=== PATIENT | male | born 1960 | race Caucasian/White ===

== ENCOUNTER 2022-02-07 12:54 | Outpatient (CLI) | payer OTHER, SELFPAY ==
--- OUTSIDE RECORDS SUMMARY | 2022-02-07 12:59 | XMS_ITS ---
:1960 Author Care Team Providers Name Role Phone Holland Dejesus Primary Care Provider Unavailable Allergies Code Code System Name Reaction Severity Status Onset NKDA ? Medications Name Status Start Date Stop Date ? ? ID NOW COVID-19 Test Kit Active ? Not sarah ilable TEST DIRECTED ketoconazole 2 % topical cream Completed ? 0 06/07/2021 Pentoxifylline CR 400 mg tablet,extended release Completed ? 06/07/2021 Take 1 tablet by mouth twice daily pentoxifylline ER 400 mg tablet,extended release Active ? Not available Take 1 tablet twice a day by oral route. tadalafil 5 mg tablet Active ? Not availa ble Take 1 tablet every day by oral route. zaleplon 10 mg capsule Completed ? TAKE 1 CAPSULE BY MOUTH AT BEDTIME N EEDED. (NO USE WITHIN 12 HOURS OF FLIGHT) Problems Name Status Onset Date Source ? 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 Procedures Date Name Performed by ? ? Vasectomy Information not avai lable Notes: 1996 ? Colonoscopy Information not avai lable Results Lab Results None recorded. Past Encounters 06/07/2021 Induration Penis Plastica Martin Larose MD: [address] [place] [address], Ph. 10/12/2020 Induration Penis Plastica Martin Larose MD: [address] [place] [address], [place]. Social History Tobacco Smoking Status Never Smoker Vaccine List Notes: NONE Plan of Care Reminders Provider Appointments None recorded. ? ? Lab None recorded. ? ? Referral None recorded. ? ? Procedures None recorded. ? ? Surgeries None recorded. ? ? Imaging None recorded. ? ? Vitals 06/07/2021 11:10AM ESTABLISHED 10 Height Weight BMI 6 ft 1 in 195 lbs 25.7 kg/m2 10/12/2020 09:20AM ESTABLISHED 10 Height Weight BMI 6 ft 1 in 195 lbs 25.7 kg/m2 01/20/2020 10:30AM NEW PATIENT 10 Height Weight BMI 6 ft 1 in 195 lbs 25.7 kg/m2
--- NOTE | 2022-02-07 13:00 | CRLHL7_ITS ---
For Patients: As a result of the Century Cures Act, medical imaging exams and procedure reports are released immediately into your electronic medical record. You may view this report before your referring provider. If you have questions, please contact your health care provider. INDICATION: For history of polycystic kidney disease TECHNIQUE: Ultrasound renal bilateral. COMPARISON: None FINDINGS: Right kidney: 10.9 cm. Normal echotexture and cortex. No masses, stones, or hydronephrosis. Left kidney: 10.1 cm. Normal echotexture and cortex. No masses, stones, or hydronephrosis. IMPRESSION: Normal renal ultrasound. Dictated by Mateo Wright MD @ 02/07/2022 1:52:08 PM (Electronically Signed)
== END 2022-02-07 12:55 | disposition home or self-care (01) ==
PROVIDERS: PCP Family Medicine; Visit Provider Family Medicine
DX: Z82.71 Family history of polycystic kidney (principal)
CPT/HCPCS: 76775

== ENCOUNTER 2023-03-22 09:22 | Outpatient (CLI) | payer OTHER, SELFPAY | END 2023-03-22 09:23 | disposition home or self-care (01) | LOC: NFLDREF 03-24 08:42 | PROVIDERS: PCP Family Medicine; Referring Provider Family Medicine; Visit Provider Family Medicine | DX: Z00.00 Encounter for general adult medical examination without abnormal findings (principal); I10 Essential (primary) hypertension; R97.20 Elevated prostate specific antigen [PSA]; Z13.6 Encounter for screening for cardiovascular disorders | CPT/HCPCS: 80053; 80061; 84153 ==

== ENCOUNTER 2023-10-27 09:37 | Outpatient (CLI) | payer OTHER, SELFPAY ==
--- OUTSIDE RECORDS SUMMARY | 2023-10-31 20:16 | XMS_ITS | Continuity of Care Document ---
Author Organization [facility] Address [address] [address] [place] [address] Phone Care Team Providers Care Rubber Liner Name Role Phone Erika Nettles CRNA Unavailable Unavailable Allergies, Adverse Reactions, Alerts Substance Reaction Status Criticality No Known Allergies Active No Inform ation Medications Medication Instructions Dosage Effective Dates (start - stop) Status Comments Prilosec 20 mg capsule,delayed release take 1 capsule (20MG) by ORAL route every day before a meal 20 MG - No Longer Active Flonase 50 mcg/actuation Nasal [place] spray 1 [place](s) by Intranasal route every day in each nostril 1 [place](s) - No Longer Active Procedures Procedure Date Colonoscopy Flex; Dx (sep Pro) 22 Colonoscopy Flex; W/remov Les- 13 Colonoscopy Flex; W/bx 1/mx Level Iv-surg Path Gross/micro 13 Offic Cons New/estab Mod Advance Directives Directive Yes / No Effective Date File Name No Information Encounters Encounter Description Practice Location Reason(s) For Visit Diagnoses Date Provider Providers Copied on Encounter [facility], [address] [address], [place], [id number], [place] tel:[phone] [facility] No Information 2 Tho James. [address], [place], [id number] , [place]. tel:[phone] Referring Provider: Dmiitri Soto, [address], [place], [address]. [phone] [facility], [address] [address], [place], [place], [id number], [place] tel:[phone] [facility] GI Symptoms or Concerns (chief complaint) Personal history of colonic polypsEncounter for screening for malignant neoplasm of colonPersonal history of colonic polyps 2 John Mosley. [address], [address], [place], [place], [id number] , [place]. tel:[phone] Referring Provider: Referral Self, USE FOR SELF REFERRALS. [facility], [address] [address], [place], [place], [id number], [place] tel:[phone] [facility] No Information 2 Tesha Christianson. [address], [facility] [address], [place], [place], [id number] , [place]. tel: [phone] [facility], [address] [address], [place], [id number], [place] tel:[phone] [facility] Polyp-intes/rect/s elva-unc BehBenign Neoplasm ColonHemorrhoids NosBenign Neoplasm ColonDiarrheaHemor rhoids Nos 3 Jackson Buckner. [address], [facility] [address], [place], [place], [address] , [place]. tel:[phone] Referring Provider: Referral Self, USE FOR SELF REFERRALS. Offic Cons New/estab Mod [facility], [address] [address], [place], [id number], [place] tel:[phone] [facility] Abdominal pain (chief complaint) Indigestio n (chief complaint) Dyspepsia/acid Peptic DiseaseDiarrheaAbd ominal Pain, Unspecified 3 Jackson Buckner. [address], [facility] [address], [place], [place], [address] , [place]. tel: [phone] Referring Provider: Singh Kincaid, [address], [place], [address]. tel:[phone] Family History Family Member Type Diagnosis Age At Onset Brother Problem (finding) Irritable bowel syndrom e Brother Problem (finding) Colon polyps Immunizations Vaccine Date Status Comments SARS-COV-2 (COVID-19) vaccin e, mRNA, spike protein, LNP, preservative free, 100 mcg or 50 mcg dose administered Note: [facility] bi-direct ional interface ; Source: Other Registry SARS-COV-2 (COVID-19) vaccin e, mRNA, spike protein, LNP, preservative free, 100 mcg or 50 mcg dose administered Note: [facility] bi-direct ional interface ; Source: Other Registry SARS-COV-2 (COVID-19) vaccin e, mRNA, spike protein, LNP, preservative free, 100 mcg or 50 mcg dose administered Note: [facility] bi-direct ional interface ; Source: Other Registry Seasonal, quadrivalent, recombinant, injectable influenza vaccine, preservative free administered Note: [facility] bi-direct ional interface ; Source: Other Registry Afluria Qd administered Note: [facility] bi-directional interface ; Source: Other Registry Afluria Qd administered Note: [facility] bi-directional interface ; Source: Other Registry tetanus toxoid, reduced diphtheria toxoid, and acellular pertussis vaccine, adsorbed administered Note: [facility] b i-directional interface ; Source: Other Registry Afluria Qd administered Note: [facility] bi-directional interface ; Source: Other Registry Payers Payer name Insurance type Covered alliance party ID Authoriza tion(s) [employer] CI [id number] Social History Type Description Quantity Date Captured Comments Sex Male Smoking Status No Information Chief Complaint And Reason For Visit No Information Reason For Referral Reason For Referral No Information History Of Present Illness Encounter Date Complaint History Of Prese nt Illness GI Symptoms or Concerns Functional Status Date Functional Assessmen t No Information Medications Administered Medication Instructions Dosage Effective Dates (start - stop) Status Comments No Drug Therapy Prescribed Instructions Date Instruction Additional Infor daisy Diverticulosis/Diverticulitis Re lated to Personal history of colonic polyps Colon Cancer Prevention Related to Personal history of colonic polyps High Fiber Diet Related to Perso nal history of colonic polyps Assessments Type Assessment Date No Information Patient Care Teams Name Effective Dates (start - stop) Status Members No Information
--- OUTSIDE RECORDS SUMMARY | 2023-10-31 20:17 | XMS_ITS | Clinical Summary ---
Author Organization [facility] Address [place], [place] [address] Care Team Providers Care Chinchilla Machine Operator Name Role Phone Jem Nugent MD Primary Care Provider [phone] Allergies No known active allergies Medications Medication Sig Dispensed Refills Start Date End Date Status naproxen (ALEVE) 220 mg tablet Take 1 tablet by mouth every 12 hours if needed. 0 05/18/2017 Active ibuprofen (ADVIL; MOTRIN) 200 mg tablet 400 - 600 mg twice daily as needed 0 05/18/2017 Active metroNIDAZOLE 0.75 % cream 5 01/18/2018 Active Active Problems Problem Noted Date Diagnosed Date Colon polyp 09/05/2012 Overview: Colonoscopy 08/2012. Advised 5 year f/u. Unspecified hearing loss 02/03/2011 Immunizations Name Administration Dates Next Due Influenza, IIV3 (Age >=3 years) 05/17/2012 Influenza, IIV4 01/18/2017,02/03/2016,02/05/2015 Td (Age >=7 Years) 07/06/2004 Tdap 02/05/2015 Family History Medical History Relation Name Comments Other Father Cancer Hyperlipidemia Mother Other Other Grandparents-Ca ncer,HTN,Heart Troubles Relation Name Status Comments Father Mother Other Social History Tobacco Use Types Packs/Day Years Used Date Smoking Tobacco: Never Smokeless Tobacco: Never Tobacco Cessation:Counseling Given: Yes Alcohol Use Standard Drinks/Week Comments Yes 6 (1 standard drink = 0.6 oz pur e alcohol) 6 per week PHQ-2 Answer Date Recorded PHQ-2 Score 0 07/10/2018 Sex and Gender Information Value Date Recorded Sex Assigned at Not on file Gender Identity Not on file Sexual Orientation Not on file Obstetrics History Last Filed Vital Signs Vital Sign Reading Time Taken Comments Blood Pressure 140/80 03/09/2018 10:19 AM CDT Pulse 64 03/09/2018 10:19 AM CDT Temperature 36 ??C (96.8 ??F) 01/18/2017 9:32 AM CDT Respiratory Rate - - Oxygen Saturation - - Inhaled Oxygen Concentration - - Weight 86.6 kg (191 lb) 03/09/2018 10:19 AM CDT Height 183.5 cm (6' 0.25) 03/09/2018 10:19 AM C DT Body Mass Index 25.73 03/09/2018 10:19 AM CDT Plan of Treatment Health Maintenance Due Date Last Done Comments HIV for age 15-65 1977 Zoster (shingles) series for age 50+ (1 of 2) 2012 BMI (ht and wt on same day) for age 18+ 03/09/2019 03/09/2018, 05/18/2017, 01/18/2017, Additional history exists Depression screening for age 12+ 03/09/2019 03/09/2018, 01/18/2017, 02/03/2016 Colonoscopy through age 75 08/31/2022 08/31/2012, COVID-19 vaccine series (2022- season) 2023 02/03/2022, 03/19/2021, 08/20/2020, Additional history exists Lipids for age 45-75 03/09/2023 03/09/2018, 01/18/2017, 02/03/2016, Additional history exists Influenza for age 50-64 01/07/2024 01/19/20 17, 02/03/2016, 02/05/2015, Additional history exists Tetanus booster 02/05/2025 02/05/2015, 07/06/2004 Hepatitis C screening for age 18-79 Completed 02/05/2015 Tdap Completed 02/05/2015 Pneumococcal series for age 6-64 Aged Out No longer eligible based on patient's age to complete this topic Procedures Procedure Name Priority Date/Time Associated Diagnosis Comments LIPID PANEL W REFLEX MEASURED LDL Routine 03/09/2018 11:01 AM CDT Routine general medical examination at a health care facility Lipid screening ANTI HCV Routine 02/05/2015 10:55 AM CDT Well adult COLONOSCOPY SCREENING Routine 08/31/2012 12:00 AM CDT Well adult exam from Last 3 Months or Most Recently Relevant to Health Maintenance Results * LIPID PANEL W REFLEX MEASURED LDL (03/09/2018 11:01 AM CDT) CHOLESTEROL,TOTAL 170 100 - 199 mg/dL 03/09/2018 8:21 PM CDT [facility] TRIGLYCERIDES 49 <150 mg/dL 03/09/2018 8:21 PM CDT [facility] HDL CHOLESTEROL 57 >40 mg/dL 8 8:21 PM CDT [facility] NON-HDL CHOLESTEROL 113 <145 mg/dl 03/09/2018 8:21 PM CDT [facility] CHOL/HDL RATIO 2.98 <4.50 03/09/2018 8:21 PM CDT [facility] LDL CHOLESTEROL 103 <=130 mg/dL 03/09/2018 8:21 PM CDT [facility] PROVIDER ORDERED STATUS RANDOM 03/09/2018 8:21 PM CDT [facility] Blood BLOOD SPECIMEN / Unknown Venipuncture / Unknown 03/09/2018 11:01 AM CDT 03/09/2018 11:01 AM CDT Ervin Gates DO CHEMISTRY [facility] [address] [place] [address], * ANTI HCV (02/05/2015 10:55 AM CDT) HEPATITIS C ANTIBODY Non-Reacti ve Non-Reacti ve 02/05/2015 8:04 PM CDT [facility] Blood specimen (specimen) BLOOD SPECIMEN / Unknown Venipuncture / Unknown 02/05/2015 10:55 AM CDT 02/05/2015 10:56 AM CDT Narrative [facility] - 02/05/2015 8:04 PM CDT Antibodies to HCV not detected; does not exclude the possibility of exposure to HCV. Singh Alonso MD SEND OUTS [facility] [address] [place] [address], [place] * COLONOSCOPY SCREENING (08/31/2012 12:00 AM CDT) Narrative 08/31/2012 12:00 AM CDT Procedure Note Scanner - 08/31/2012 12:00 AM CDT Singh Alonso MD GI PROCEDURE O RD from Last 3 Months or Most Recently Relevant to Health Maintenance Care Teams Chinchilla Machine Operator Relationship Specialty Start Date End Date Jem Nugent MD [address] [place] [address] PCP - General Family Practice 03/07/23
--- OUTSIDE RECORDS SUMMARY | 2023-10-31 20:17 | XMS_ITS | Referral Summary ---
Author Organization [facility] Address [address] [place] [id number] Care Team Providers Care Crank Hand Name Role Phone No Ref-Primary, Physician Primary Care Provider Will Gonzalez MD Unavailable [phone] Allergies No known active allergies Medications No known medications Active Problems Patient Care Coordination No te Formatting of this note migh t be different from the original. [email or web address] No known active problems Resolved Problems Problem Noted Date Diagnosed Date Resolved Date Strain of right gastrocnemius muscle 07/04/2016 08/18/2016 Immunizations Name Administration Dates Next Due Influenza Vaccine 18-64 (Flublok) 02/13/2019 Tdap (Adult) Unspecified Formulation 02/05/2015 Social History Tobacco Use Types Packs/Day Years Used Date Smoking Tobacco: Never Smokeless Tobacco: Never Alcohol Use Standard Drinks/Week Comments Yes 0 (1 standard drink = 0.6 oz pur e alcohol) AUDIT-C Answer Date Recorded Q1: How often do you have a drink containing alc ohol? 2-4 times a month 02/13/2019 Q2: How many drinks containi ng alcohol do you have on a typical day when you are drinking? 1 or 2 02/13/2019 Q3: How often do you have si x or more drinks on one occasion? Never 02/13/2019 PHQ-2 Answer Date Recorded PHQ-2 Score 0 02/13/2019 Adolescent Education Answer Date Record ed Getting School Help Needed Not on file 01/27 Sex and Gender Information Value Date Recorded Sex Assigned at Not on file Gender Identity Not on file Sexual Orientation Not on file Last Filed Vital Signs Vital Sign Reading Time Taken Comments Blood Pressure 130/86 02/13/2019 10:45 AM CDT Pulse 60 02/13/2019 10:45 AM CDT Temperature 36.7 ??C (98 ??F) 02/13/2019 10: 45 AM CDT Respiratory Rate - - Oxygen Saturation 98% 02/13/2019 10: 45 AM CDT Inhaled Oxygen Concentration - - Weight 86.5 kg (190 lb 12.8 oz) 019 10:45 AM CDT Height 182.9 cm (6') 02/13/2019 10:45 AM CDT Body Mass Index 25.88 02/13/2019 10:45 AM CDT Plan of Treatment Not on file Care Teams Crank Hand Relationship Specialty Start Date End Date No Ref-Primary, Physician PCP - General 02/13/19 Will Gonzalez MD [address] [place], [place] [id number] Urology 01/06/20
--- OUTSIDE RECORDS SUMMARY | 2023-10-31 20:17 | XMS_ITS | Data Portability ---
Author Organization [place] - Leesa cooley, [facility] Address [address] [place] [address] Assessment Encounter Date Assessment Date Assessment LastModified by Organization Details LastModified Time 10/12/2020 10/12/2020 60 year old male with chronic worsening Peyronie's disease. Not available 10/12/2020 10:55:41 06/07/2021 06/07/2021 61 year old male with chronic worsening Peyronie's disease. Not available 06/07/2021 12:46:34 Plan of Treatment Reminders Order Date Submit Date Provider Last Modified By Organization Details Last Modified Time Details Appointments None recorded. Lab None recorded. Referral None recorded. Procedures None recorded. Surgeries None recorded. Imaging None recorded. Medication Orders pentoxifyll ine ER 400 mg tablet,exte nded release 2020 021 [id number], [address] [place], [address], 14:37:09 tadalafil 5 mg tablet 2021 022 [id number], [address] [place], [address], 12:46:46 Patient TargetsNo targets recorded. Patient InstructionsNo instructions recorded. Reason for Referral None Reported. Problems Name Status Onset Date Resolution Date Notes Provider Name and Address Organization Details Recorded Time Induration penis plastica Active 01/20/20 20 Holland Dejesus MD [address] [facility],[address], [place], [address], [facility] 01/20/2020 12:09:45 Problem Notes None recorded. Procedures Surgical History Date Name Laterality Status Provider Name and Address Organization Details Recorded Time Colonoscopy completed Moustapha waldrop [facility] 01/20/2020 12:11:37 Vasectomy completed Moustapha waldrop [facility] 01/20/2020 12:12:01 Imaging Results None recorded. Procedure Notes None recorded. Medical Equipment None Reported. Allergies No known drug allergies Medications Name Sig Start Date Stop Date Status Note LastModified by Organization Details LastModified Time Pentoxifyll ine CR 400 mg tablet,exte nded release Take 1 tablet by mouth twice daily 06/07 completed Not Available Not Available Not Available pentoxifyll ine ER 400 mg tablet,exte nded release Take 1 tablet twice a day by oral route. active Not Available Not Available No t Available zaleplon 10 mg capsule TAKE 1 CAPSULE BY MOUTH AT BEDTIME NEEDED. (NO USE WITHIN 12 HOURS OF FLIGHT) 10/12 completed Not Available Not Available Not Available ketoconazol e 2 % topical cream 06/07 completed Not Available Not Available Not Available tadalafil 5 mg tablet Take 1 tablet every day by oral route. 2022 active Not Available Not Available Not Avai lable ID NOW COVID-19 Test Kit TEST DIRECTED active Not Available Not Available No t Available Vitals Date Recorded Body height Body mass index (BMI) Body weight Provider Name and Address Organization Details Last Updated DateTime 01/20/2020 185.42 cm 25.7 kg/m2 59257.51 g Moustapha Alvarez [facility] 01/20/2020 12:08:17 Date Recorded Body height Body mass index (BMI) Body weight Provider Name and Address Organization Details Last Updated DateTime 10/12/2020 185.42 cm 25.7 kg/m2 02930.51 g Aspen Comer [facility] 10/12/2020 10:22:10 Date Recorded Body height Body mass index (BMI) Body weight Provider Name and Address Organization Details Last Updated DateTime 06/07/2021 185.42 cm 25.7 kg/m2 60903.51 g Be Patel [facility] 06/07/2021 12:25:28 Social History Question Answer Notes LastModified by Organizat ion Details LastModified Time Tobacco Smoking Status Never Smoker MA[facility] Vaz[facility] - [facility] 01/20/2020 12:11:22 What Is Your Level Of Alcohol Consumption? Occasional Information not available 10/12/2020 What Is Your Level Of Caffeine Consumption? Occasional 1 Cup Daily Information not available 10/12/2020 How Much Tobacco Do You Chew? None Information not available 10/12/2020 Are You Currently Employed? Yes Information not available 06/07/2021 Do You Or Have You Ever Used E-cigarettes Or Vape? Never Used Electronic Cigarettes Information not available 10/12/2020 Recreational Drug Use No Information not available 10/12/2020 Could You Be ? No Information not available 10/12/2020 Marital Status Informatio n not available 10/12/2020 What Was The Date Of Your Most Recent Tobacco Screening? 06/07/2021 Information not available 06/07/2021 What Is Your Relationship Status? Information not available 06/07/2021 Do You Or Have You Ever Used Smokeless Tobacco? Never Used Smokeless Tobacco Information not available 10/12/2020 Do You Or Have You Ever Used Any Other Forms Of Tobacco Or Nicotine? No Information not available 06/07/2021 Sex: Unknown Functional Status None recorded. Mental Status None recorded. Family History Relationship Description Onset Age of this Age Resolved Age Notes Mother Family history of Hypertension Maternal Grandmother Family history of cardiac disorder Paternal Grandmother Family history of malignant neoplasm Medical History Condition Response Other N High Blood Pressure N Kidney Stones N Depression N Lung Disease N GERD/Acid Reflux N Diabetes N Sexually Transmitted Infection N Bleeding Disorder N Cancer N High Cholesterol N Heart Disease N Past Encounters Encounter ID Performer Location Encounter Start Date Encounter Closed Date Diagnosis/Indication Diagnosis SNOMED-CT Code [id number] MD [facility] [address] [id number] 01/20/2020 11:17:10 01/20/2020 13:17:59 Induration penis plastica [id number] MD [facility] [address] [id number] 10/12/2020 10:16:19 10/14/2020 11:10:31 Induration penis plastica [id number] Martin Larose MD [facility] [address] [id number] 06/07/2021 12:07:47 06/09/2021 08:29:15 Induration penis plastica [id number] Health Concerns Section Related Observation LastModified by Organization Detai ls LastModified Time None Recorded Concern Status LastModified by Organization Details LastModified Time None Recorded Advance Directives Directive None Recorded Payers Encounter Date Sequence Insurance Name Policy Number Policy [place] Covered Member ID [place] Member ID Guarantor Name 01/20/2020 1 [employer] [id number] Estuardo T Day [id number] Estuardo T Day 10/12/2020 1 [employer] [id number] Estuardo T Day [id number] Estuardo T Day 06/07/2021 1 [employer] [place] [employer] [id number] Estuardo T Day [id number] Estuardo T Day Notes Date Note Type Note Provider Name and Address Organization Details Recorded Time 01/20/2020 text/html HPI Notes: For about six months, he's had left leaning curvature to his penis. He's never had this before and nothing makes it better or worse. He reports about a 40% curvature. No pain. He can still have intercourse. Holland Dejesus MD [address] [place] [address], [phone], [facility] 01/20/2020 12:15:05 10/12/2020 text/html HPI Notes: For about six months, he's had left leaning curvature to his penis. He's never had this before and nothing makes it better or worse. He reports about a 40% curvature. No pain. He can still have intercourse. 10/12/2020: Mr. Soliman is a very pleasant 60 year old male who is referred to me by my partner, Dr. Dejesus, regarding his chronic Peyronie's disease. He initially saw Dr. Dejesus 01/2020 and was started on vitamin E and manual traction therapy. Over the course of the last 9 months he feels that the curvature has slightly worsened to 45 degrees and he feels a second plaque. He is still getting good erections and able to engage in penetrative intercourse. His tells him that she experiences no discomfort, he does feel some discomfort but not enough to preclude sex. Martin Larose MD [address] [facility],[address], [place], [address], [facility] 12/07/2020 14:37:09 06/07/2021 text/html HPI Notes: For about six months, he's had left leaning curvature to his penis. He's never had this before and nothing makes it better or worse. He reports about a 40% curvature. No pain. He can still have intercourse. 10/12/2020: Mr. Soliman is a very pleasant 60 year old male who is referred to me by my partner, Dr. Dejesus, regarding his chronic Peyronie's disease. He initially saw Dr. Dejesus 01/2020 and was started on vitamin E and manual traction therapy. Over the course of the last 9 months he feels that the curvature has slightly worsened to 45 degrees and he feels a second plaque. He is still getting good erections and able to engage in penetrative intercourse. His tells him that she experiences no discomfort, he does feel some discomfort but not enough to preclude sex. 06/07/21: Here for follow up chronic Peyronie's disease. Currently utilizing combination of Trental and manual traction therapy. Stopped Trental a couple of months ago due to GI upset. Has felt development of further scar tissue on the opposite side which has actually reduced his curvature. Is dealing with somewhat of an hourglass deformity but not bothersome. Still able to penetrate without difficulty. Erections not quite as firm as previous. Martin Larose MD [address] [facility],[address], [place], [address], [facility] 06/07/2021 13:19:50
--- OUTSIDE RECORDS SUMMARY | 2023-10-31 20:17 | XMS_ITS | Clinical Summary ---
Author Organization [facility] Address [address], [place] [address] Care Team Providers Care Break Off Worker Name Role Phone Singh Alonso MD Primary Care Provider Unavailable Source Comments You are receiving this document as you are listed as the primary care provider,follow-up provider, or the patient has been referred to you for consultation.This is in compliance with the Medicare and[employer] EHR Incentive Program,which states Providers who transition their patient to another setting of careor provider of care or refers their patient to another provider of care shouldprovide summary care record for each transition of care or referral. [facility] Allergies No known active allergies Medications No known medications Social History Tobacco Use Types Packs/Day Years Used Date Smoking Tobacco: Never Smokeless Tobacco: Never Alcohol Use Standard Drinks/Week Comments Yes 0 (1 standard drink = 0.6 oz pur e alcohol) Occasional Sex and Gender Information Value Date Recorded Sex Assigned at Not on file Gender Identity Not on file Sexual Orientation Not on file Last Filed Vital Signs Vital Sign Reading Time Taken Comments Blood Pressure 128/88 08/23/2017 1:44 PM CDT Pulse - - Temperature - - Respiratory Rate - - Oxygen Saturation - - Inhaled Oxygen Concentration - - Weight 92.1 kg (203 lb) 08/23/2017 1:44 PM CDT Height 185.4 cm (6' 1) 08/23/2017 1:44 PM CDT Body Mass Index 26.78 08/23/2017 1:44 PM CDT Plan of Treatment Health Maintenance Due Date Last Done Comments Colon Cancer Screening Plan Due 1962 Hep C Screening (Preventive Services) 1960 PSA Screening Discussion 1962 HIV Screening (Preventive Services) 1978 Adult Preventive Visit 1980 Cholesterol 1997 Zoster/Shingles (1 of 2) 2012 COVID-19 Vaccine ( season) 2023 08/20/2020, 07/22/2020 Influenza (Season Ended) 2024 019, 01/18/2017, 02/03/2016, Additional history exists DTaP/Tdap/Td (2 - Tdap) 02/05/2025 02/05/2015, 07/04 HepA Aged Out No longer eligi ble based on patient's age to complete this topic HepB Aged Out No longer eligi ble based on patient's age to complete this topic Hib Aged Out No longer eligi ble based on patient's age to complete this topic IPV (Polio) Aged Out No longer eligi ble based on patient's age to complete this topic MCV4 Aged Out No longer eligi ble based on patient's age to complete this topic Pneumococcal Aged Out No longer eligi ble based on patient's age to complete this topic Care Teams Break Off Worker Relationship Specialty Start Date End Date Singh Alonso MD [address] [place] [address] PCP - General Family Practice 08/14/17
--- OUTSIDE RECORDS SUMMARY | 2023-10-31 20:17 | XMS_ITS | Clinical Summary ---
Author Organization [place] Address [address] [place] [id number] Care Team Providers Care Methods And Procedures Analyst Name Role Phone No Ref-Primary, Physician Primary Care Provider Will Gonzalez MD Unavailable [phone] Allergies No known active allergies Medications No known medications Active Problems Patient Care Coordination No te Formatting of this note migh t be different from the original. [email or web address] No known active problems Resolved Problems Problem Noted Date Diagnosed Date Resolved Date Strain of right gastrocnemius muscle 07/04/2016 08/18/2016 Immunizations Name Administration Dates Next Due Influenza Vaccine 18-64 (Flublok) 02/13/2019 Tdap (Adult) Unspecified Formulation 02/05/2015 Family History Medical History Relation Comments No Known Problems Brother 1 No Known Problems Brother 2 Hypertension Father Hypertension Mother Colon Cancer No family hx of Coronary Artery Disease Early Onset No family hx of Relation Status Comments Brother 1 Alive Brother 2 Alive Father Alive Mother Alive Social History Tobacco Use Types Packs/Day Years [...] of Treatment Not on file Care Teams Methods And Procedures Analyst Relationship Specialty Start Date End Date No Ref-Primary, Physician PCP - General 02/13/19 Will Gonzalez MD [address] [place], [place] [address] Urology 01/06/20
== END 2023-10-27 09:38 | disposition home or self-care (01) ==
LOC: NFLDREF 10-31 20:15
PROVIDERS: PCP Family Medicine; Referring Provider Family Medicine; Visit Provider Family Medicine
DX: R97.20 Elevated prostate specific antigen [PSA] (principal); I10 Essential (primary) hypertension
CPT/HCPCS: 80048; 84153; 84154

== ENCOUNTER 2024-04-26 08:06 | Outpatient (CLI) | payer OTHER, SELFPAY | END 2024-04-26 08:07 | disposition home or self-care (01) | LOC: NFLDREF 04-27 22:55 | PROVIDERS: PCP Family Medicine; Referring Provider Family Medicine; Visit Provider Family Medicine | DX: I10 Essential (primary) hypertension (principal); Z13.6 Encounter for screening for cardiovascular disorders; Z13.1 Encounter for screening for diabetes mellitus; Z12.5 Encounter for screening for malignant neoplasm of prostate | CPT/HCPCS: 80053; 80061; G0103 ==